=== PATIENT | female | born 1995 | race African-American/Black ===

== ENCOUNTER 2020-09-27 15:10 | Emergency (ER) | payer OTHER ==
[2020-09-27 15:37] VITALS: BP 122/83; PULSE 88; TEMP 98.1; BMI 24.1
[2020-09-27] MEDS ORDERED: ACETAMINOPHEN 325 MG TABLET (FP) PO ONE (16:14)
[2020-09-27] MEDS ORDERED: ACETAMINOPHEN 325 MG TABLET (FP) ONE (16:17)
[2020-09-27] MEDS ORDERED: KETOROLAC TROMETHAMINE 60 MG/2 ML VIAL IM ONE (19:22)
[2020-09-27] MEDS ORDERED: KETOROLAC TROMETHAMINE 30 MG/1 ML VIAL ONE (19:28)
== END 2020-09-27 19:41 | disposition home or self-care (01) ==
LOC: JERFT 15:10
PROC: 3E0233Z Introduction of Anti-inflammatory into Muscle, Percutaneous Approach (ICD-10-PCS; principal; 2020-09-27)
DX: S06.9X9A Unspecified intracranial injury with loss of consciousness of unspecified duration, initial encounter (principal); M54.5 Low back pain
CPT/HCPCS: 70450-TC; 72100-TC-FY; 84703; 99285-25